=== PATIENT | male | born 2000 | race Caucasian/White ===

== ENCOUNTER 2023-04-13 12:52 | Outpatient (CLI) | payer BC, OTHER ==
[~2023-04-13] VITALS: Ht 175.3 cm; Wt 67.0 kg
[~2023-04-13 12:52] MED LIST: INFLECTRA100 MG IV
[2023-04-13 13:05] VITALS: BP 102/68; PULSE 68; TEMP 97.9
[2023-04-13 13:14] LABS: BASO # 0.1 K/mm3 (0.0-0.2); BASO % 0.9 % (0.0-2.0); EOS # 0.1 K/mm3 (0.0-0.7); EOS % 0.9 % (0.0-4.0); GRAN # 2.7 K/mm3 (1.4-6.5); GRAN % 47.5 % (42.2-75.2); HEMATOCRIT 45.3 % (42.0-52.0); HEMOGLOBIN 15.8 g/dl (13.5-18.0); LYMPH # 2.3 K/mm3 (1.2-3.4); MEAN CELL VOLUME 83 fl (80.0-100.0); MEAN CORPUSCULAR HEMOGLOBIN 29 pg (27-31); MEAN CORPUSCULAR HGB CONC 35 g/dl (33.0-37.0); MEAN PLATELET VOLUME 10.9 fl (7.4-10.4); MONO # 0.6 K/mm3 (0.1-0.6); MONO % 10.7 % (1.7-9.3); PLATELET COUNT 223 K/mm3 (130-400); RED BLOOD COUNT 5.44 M/mm3 (4.20-5.60); REDCELL DISTRIBUTION WIDTH-CV 12.6 % (11.5-14.5)
[2023-04-13 13:23] LABS: ALBUMIN 4.6 gm/dL (3.5-5.0); BILIRUBIN,TOTAL 0.8 mg/dL (0.2-1.2); CALCIUM 9.7 mg/dL (8.4-10.2); CREATININE, serum 0.97 mg/dL (0.72-1.25); POTASSIUM 4.1 mmol/L (3.5-4.5); TOTAL PROTEIN 8.2 gm/dL (6.2-8.1)
[2023-04-13 14:30] VITALS: BP 115/75; PULSE 70
[2023-04-13 15:00] VITALS: BP 108/84; PULSE 66
[2023-04-13 15:30] VITALS: BP 115/79; PULSE 71
[2023-04-13 16:00] VITALS: BP 123/93; PULSE 71
[2023-04-13 16:30] VITALS: BP 134/84; PULSE 82
--- NOTE | 2023-04-13 16:36 | NUR ---
PT TOLERATED INFLECTRA INFUSION WELL. VS REMAINED WITHIN NORMAL LIMITS. PT AMBULATED INDEPENDENTLY TO [facility] FOLLOWING INFUSION. IV DISCONTINUED UPON DISCHARGE.
== END 2023-04-13 16:37 | disposition home or self-care (01) ==
LOC: EUO 12:52
PROVIDERS: Internal Medicine Gastroenterology
DX: K50.90 Crohn's disease, unspecified, without complications (principal)
CPT/HCPCS: J7050; Q5103

== ENCOUNTER 2023-05-18 12:47 | Outpatient (CLI) | payer BC, OTHER ==
[2023-05-18] VITALS (7 sets, daily range): BP systolic 107–125; BP diastolic 70–94; PULSE 51–71; TEMP 98
[~2023-05-18] VITALS: Ht 175.3 cm; Wt 67.1 kg
[2023-05-18 13:30] LABS: BASO % 0.6 % (0.0-2.0); EOS # 0.1 K/mm3 (0.0-0.7); EOS % 1.1 % (0.0-4.0); GRAN # 3.1 K/mm3 (1.4-6.5); GRAN % 48.8 % (42.2-75.2); HEMATOCRIT 45.2 % (42.0-52.0); HEMOGLOBIN 15.6 g/dl (13.5-18.0); LYMPH # 2.5 K/mm3 (1.2-3.4); LYMPH % 39.3 % (20.0-51.0); MEAN CELL VOLUME 83 fl (80.0-100.0); MEAN CORPUSCULAR HEMOGLOBIN 29 pg (27-31); MEAN CORPUSCULAR HGB CONC 35 g/dl (33.0-37.0); MEAN PLATELET VOLUME 10.9 fl (7.4-10.4); MONO # 0.6 K/mm3 (0.1-0.6); PLATELET COUNT 250 K/mm3 (130-400); RED BLOOD COUNT 5.45 M/mm3 (4.20-5.60); REDCELL DISTRIBUTION WIDTH-CV 12.4 % (11.5-14.5)
[2023-05-18 13:48] LABS: ALBUMIN 4.5 gm/dL (3.5-5.0); BILIRUBIN,TOTAL 0.6 mg/dL (0.2-1.2); CALCIUM 9.9 mg/dL (8.4-10.2); CREATININE, serum 0.94 mg/dL (0.72-1.25); TOTAL PROTEIN 8.5 gm/dL (6.2-8.1)
[2023-05-18] MEDS ORDERED: Acetaminophen 500 MG TAB PO ONE (14:00)
[2023-05-18] MEDS ORDERED: INFLIXIMAB DYYB IV ONE (14:00)
[2023-05-18] MEDS ORDERED: methylPREDNISolone Sod Succ 125 MG/2 ML VIAL IV ONE (14:00)
[2023-05-18] MEDS ORDERED: diphenhydrAMINE 50 MG/ML 1 ML VIAL IV ONE (14:00)
[2023-05-18] MEDS ORDERED: NS IV ONE (14:00)
== END 2023-05-18 16:27 | disposition home or self-care (01) ==
LOC: EUO 12:47
PROVIDERS: Internal Medicine Gastroenterology
DX: K50.90 Crohn's disease, unspecified, without complications (principal)
CPT/HCPCS: J7050; Q5103

== ENCOUNTER 2023-12-14 11:00 | Outpatient (CLI) | payer BC, OTHER ==
[~2023-12-14] VITALS: Ht 175.3 cm; Wt 76.8 kg
[2023-12-14 11:27] LABS: BASO % 0.8 % (0.0-2.0); EOS # 0.1 K/mm3 (0.0-0.7); EOS % 1.2 % (0.0-4.0); GRAN # 2.5 K/mm3 (1.4-6.5); GRAN % 49.6 % (42.2-75.2); HEMATOCRIT 43.6 % (42.0-52.0); HEMOGLOBIN 15.1 g/dl (13.5-18.0); LYMPH # 1.9 K/mm3 (1.2-3.4); LYMPH % 36.8 % (20.0-51.0); MEAN CELL VOLUME 83 fl (80.0-100.0); MEAN CORPUSCULAR HEMOGLOBIN 29 pg (27-31); MEAN CORPUSCULAR HGB CONC 35 g/dl (33.0-37.0); MEAN PLATELET VOLUME 10.8 fl (7.4-10.4); MONO # 0.6 K/mm3 (0.1-0.6); MONO % 11.4 % (1.7-9.3); PLATELET COUNT 244 K/mm3 (130-400); RED BLOOD COUNT 5.27 M/mm3 (4.20-5.60); REDCELL DISTRIBUTION WIDTH-CV 12.3 % (11.5-14.5)
[2023-12-14] MEDS ORDERED: methylPREDNISolone Sod Succ 125 MG/2 ML VIAL IV ONE (11:45)
[2023-12-14] MEDS ORDERED: NS Flush 25 ML IV Bag IV PRN (11:45)
[2023-12-14] MEDS ORDERED: NS IV ONE (11:45)
[2023-12-14] MEDS ORDERED: diphenhydrAMINE 50 MG/ML 1 ML VIAL IV ONE (11:45)
[2023-12-14] MEDS ORDERED: Acetaminophen 500 MG TAB PO ONE (11:45)
[2023-12-14] MEDS ORDERED: INFLIXIMAB DYYB IV ONE (11:45)
[2023-12-14 11:55] LABS: ALANINE AMINOTRANSFERASE 58 U/L (0-55); ALBUMIN 4.3 g/dL (3.5-5.0); ALKALINE PHOSPHATASE 80 U/L (40-150); AST,SGOT 29 U/L (5-34); BILIRUBIN,TOTAL 0.8 mg/dL (0.2-1.2); BLOOD UREA NITROGEN 19 mg/dL (9-21); CALCIUM 9.6 mg/dL (8.4-10.2); CREATININE, serum 1.06 mg/dL (0.72-1.25); GLUCOSE 99 mg/dL (70-99); TOTAL PROTEIN 8.2 g/dl (6.2-8.1)
[2023-12-14 11:57] LABS: CHLORIDE 109 mEq/L (98-107); POTASSIUM 3.7 mEq/L (3.5-4.5); SODIUM 142 mEq/L (136-145)
[2023-12-14 12:12] VITALS: BP 118/81; PULSE 66; TEMP 97.9
[2023-12-14 12:30] VITALS: BP 113/83; PULSE 66
[2023-12-14 13:00] VITALS: BP 125/85; PULSE 55
[2023-12-14 13:30] VITALS: BP 111/88; PULSE 65
[2023-12-14 14:00] VITALS: BP 118/90; PULSE 71
--- NOTE | 2023-12-14 14:15 | NUR ---
Pt tolerated infusion without issue. IV DC'd, site wrapped with coban. He exits dept with steady gait. Free of complaints at discharge.
== END 2023-12-14 14:15 | disposition home or self-care (01) ==
LOC: EUO 11:00
PROVIDERS: Internal Medicine Gastroenterology
DX: K50.90 Crohn's disease, unspecified, without complications (principal)
CPT/HCPCS: J7050; Q5103

== ENCOUNTER 2024-02-22 12:52 | Outpatient (CLI) | payer BC, OTHER ==
[~2024-02-22] VITALS: Ht 175.3 cm; Wt 71.5 kg
[2024-02-22 13:17] LABS: BASO % 0.8 % (0.0-2.0); EOS # 0.1 K/mm3 (0.0-0.7); GRAN % 40.4 % (42.2-75.2); HEMATOCRIT 40.3 % (42.0-52.0); HEMOGLOBIN 14.4 g/dl (13.5-18.0); LYMPH # 2.2 K/mm3 (1.2-3.4); LYMPH % 45.4 % (20.0-51.0); MEAN CELL VOLUME 82 fl (80.0-100.0); MEAN CORPUSCULAR HEMOGLOBIN 29 pg (27-31); MEAN CORPUSCULAR HGB CONC 36 g/dl (33.0-37.0); MEAN PLATELET VOLUME 11.7 fl (7.4-10.4); MONO # 0.6 K/mm3 (0.1-0.6); MONO % 12.2 % (1.7-9.3); PLATELET COUNT 210 K/mm3 (130-400); RED BLOOD COUNT 4.89 M/mm3 (4.20-5.60); REDCELL DISTRIBUTION WIDTH-CV 12.3 % (11.5-14.5)
[2024-02-22] MEDS ORDERED: methylPREDNISolone Sod Succ 125 MG/2 ML VIAL IV ONE (13:30)
[2024-02-22] MEDS ORDERED: Acetaminophen 500 MG TAB PO ONE (13:30)
[2024-02-22] MEDS ORDERED: diphenhydrAMINE 50 MG/ML 1 ML VIAL IV ONE (13:30)
[2024-02-22 13:35] LABS: ALBUMIN 4.2 g/dL (3.5-5.0); BILIRUBIN,TOTAL 0.7 mg/dL (0.2-1.2); CALCIUM 9.4 mg/dL (8.4-10.2); CREATININE, serum 0.99 mg/dL (0.72-1.25); POTASSIUM 3.9 mEq/L (3.5-4.5); TOTAL PROTEIN 7.6 g/dl (6.2-8.1)
[2024-02-22 13:40] VITALS: BP 112/69; PULSE 57; TEMP 98.5
[2024-02-22 13:55] VITALS: BP 108/74; PULSE 53
[2024-02-22 14:00] VITALS: BP 118/85; PULSE 57
[2024-02-22] MEDS ORDERED: INFLIXIMAB DYYB IV ONE (14:00)
[2024-02-22] MEDS ORDERED: NS IV ONE (14:00)
[2024-02-22 14:30] VITALS: BP 119/82; PULSE 64
[2024-02-22 15:00] VITALS: BP 113/88; PULSE 58
[2024-02-22 15:30] VITALS: BP 122/90; PULSE 63
--- NOTE | 2024-02-22 15:59 | NUR ---
Pt tolerated infusion without issue. IV DC'd, site wrapped with coban. Pt exits dept with steady gait. Free of complaints at discharge.
== END 2024-02-22 15:59 | disposition home or self-care (01) ==
LOC: EUO 12:52
PROVIDERS: Internal Medicine Gastroenterology
DX: K50.90 Crohn's disease, unspecified, without complications (principal)
CPT/HCPCS: J7050; Q5103